=== PATIENT | male | born 1970 | race Two or more races ===

== ENCOUNTER 2021-05-03 18:08 | Emergency (ER) | payer MEDICAID ==
--- NOTE | 2021-05-03 18:26 | EDM.PDOC ---
ED HPI GENERAL MEDICAL PROBLEM - General Stated Complaint: infection on chest Time Seen by Provider: 05/03/21 18:15 Source of Information: Reports: Patient History Limitations: Reports: No Limitations - History of Present Illness INITIAL COMMENTS - FREE TEXT/NARRATIVE: Patient comes emergency department today with complaints of a infection on his left anterior chest. This patient on Saturday was 4 days ago fell in his hotel room landing on a garbage can striking his left anterior superior chest. He sustained a superficial abrasion that was he related somewhat deep. He has been cleaning it with [id number] remedies at home and he has noticed last couple of days it has become quite swollen and red. He did not get knocked out when he fell. He has no head neck or back pain. He has no shortness of breath difficulty breathing or chest pain. He denies any fever or chills. No cough or congestion. He is unsure when his last tetanus shot was. He has not been evaluated for this. - Related Data Home Meds: Home Meds cephALEXin [Cephalexin] 500 mg PO QID #40 capsule 05/03/21 [Rx] ED ROS GENERAL - Review of Systems Review Of Systems: Comprehensive ROS is negative, except as noted in HPI. ED EXAM, SKIN/RASH Exam: See Below Exam Limited By: No Limitations General Appearance: Alert, WD/WN, No Apparent Distress Ears: Normal External Exam Nose: Normal Inspection Throat/Mouth: Normal Inspection Head: Atraumatic, Normocephalic Neck: Normal Inspection, Supple Respiratory/Chest: No Respiratory Distress, Lungs Clear, Normal Breath Sounds, Other (Of the mid clavicular line just below his clavicle there is an approximate 4 cm area of induration swelling and redness. It is quite hard. It is draining some purulent discharge. Mild erythema surrounding it. No crepitus) Cardiovascular: Normal Peripheral Pulses, Regular Rate, Rhythm Extremities: Normal Inspection Neurological: Alert, Oriented Psychiatric: Normal Affect Skin: Warm, Dry, Intact Lymphatic: No Adenopathy Course - Orders/Labs/Meds Orders: Active Orders 24 hr Category Date Time Status Vaccines to be Administered [RC] PER UNIT ROUTINE Care 05/03/21 18:26 Active CULTURE WOUND [RM] Stat Lab 05/03/21 18:26 Ordered Meds: Medications Discontinued Medications Generic Name Dose Route Start Last Admin Trade Name Freq PRN Reason Stop Dose Admin Cephalexin 1 packet 05/03/21 18:26 05/03/21 18:34 Take Home: Cephalexin 500 Mg Cap, 4 Cap Pack PO 05/03/21 18:27 1 packet ONETIME ONE Administration Diphtheria/Tetanus/Acell Pertussis 0.5 ml 05/03/21 18:26 05/03/21 18:34 Diphtheria,Pertussis(Acell),Tetanus Vaccine 0.5 Ml Syringe IM 05/03/21 18:27 0.5 ml .ONCE ONE Administration - Re-Assessments/Exams Free Text/Narrative Re-Assessment/Exam: 05/03/21 19:03 Bedside ultrasound of the area of concern for questionable abscess versus infection surprisingly by ultrasound completed and reviewed extemporaneously by myself there is a scant amount of free fluid under the area of abscess. The wound is currently draining on its own. I was able to express a small amount of purulent discharge it was obtained for culture. Patient was given a dose of Keflex and we will keep him on this for the next 10 days. Wound culture pending. Tetanus was updated. I do not see the need for any further incision and drainage at this site as it is already draining on its own and there is a scant amount of fluid by ultrasound in the area of concern. Discharge directions as below are explained to the patient he was comfortable with this plan his questions were answered. Departure - Departure Time of Disposition: 18:30 Disposition: Home, Self-Care 01 Clinical Impression: Infection of chest - Discharge Information Prescriptions: cephALEXin [Cephalexin] 500 mg PO QID #40 capsule Instructions: Cephalexin Tablets or Capsules, Probiotics Referrals: PCP,Not In Area [Primary Care Provider] - Additional Instructions: Cleanse area twice daily with soap and water bacitracin and bandage until healed. Hot packs to the area every 2 hours as much as possible to facilitate drainage. Tylenol and or Ibuprofen as needed for pain. Cephalexin 1 capsule 4 times a day. First dose given in the ED and dose for tonight and the morning sent home. RX sent to [facility]. Watch for worsening infection spreading of the infection. Recheck in the ED if new or worsening symptoms especially fever. Recheck in the clinic in the next week if any concerns sooner if worse or not improving. - My Orders Last 24 Hours: My Active Orders 05/03/21 18:26 Vaccines to be Administered [RC] PER UNIT ROUTINE CULTURE WOUND [RM] Stat - Assessment/Plan Last 24 Hours: My Active Orders 05/03/21 18:26 Vaccines to be Administered [RC] PER UNIT ROUTINE CULTURE WOUND [RM] Stat
[2021-05-03] MEDS: Take Home: Cephalexin 500 MG Cap, 4 Cap Pack PO ONE (18:34)
[2021-05-03] MEDS: Diphtheria,Pertussis(Acell),Tetanus Vaccine 0.5 ML Syringe IM ONE (18:34)
== END 2021-05-03 19:10 | disposition home or self-care (01) ==
LOC: VM.ED 18:08
DX: J22 Unspecified acute lower respiratory infection (principal); Z23 Encounter for immunization
CPT/HCPCS: 87070; 90471; 90715; 99283-25; 99284; A9270-GY